=== PATIENT | male | born 1990 | race Caucasian/White ===

== ENCOUNTER 2017-08-21 22:31 | Emergency (ER) | payer SELFPAY ==
[2017-08-21 22:38] VITALS: O2SAT 98
[2017-08-21] MEDS ORDERED: Sodium Chloride 0.9% 1,000 ML IV SCH (23:00)
[2017-08-21 23:11] LABS: BASO % 0.5 % (0.0-2.0); EOS # 0.1 K/uL (0.0-0.7); EOS % 1.1 % (0.0-4.0); HEMATOCRIT 42.3 % (35.0-51.0); LYMPH # 0.8 K/uL (1.0-4.3); LYMPH % 9.9 % (20.0-40.0); MEAN CELL VOLUME 82.9 fl (80.0-94.0); MEAN CORPUSCULAR HEMOGLOBIN 27.8 pg (27.0-31.0); MEAN CORPUSCULAR HGB CONC 33.6 g/dL (33.0-37.0); MEAN PLATELET VOLUME 9.5 fl (7.2-11.7); MONO # 0.7 K/uL (0.0-0.8); MONO % 8.7 % (0.0-10.0); NEUT # 6.6 K/uL (1.8-7.0); NEUT % 79.8 % (50.0-75.0); PLATELET COUNT 231 K/uL (130-400); RED CELL DISTRIBUTION WIDTH 13.5 % (11.5-14.5); WHITE BLOOD COUNT 8.3 K/uL (4.8-10.8)
--- NOTE | 2017-08-21 23:14 | ED PDOC ---
HPI: Abdomen Time Seen by Provider: 08/21/17 22:51 Chief Complaint (Nursing): Abdominal Pain History Per: Patient History/Exam Limitations: no limitations Onset/Duration Of Symptoms: Days Outside of [place] travel?: Yes Other Location:: [facility] Current Symptoms Are (Timing): Still Present Context: Travel Severity: Moderate Location Of Pain/Discomfort: RLQ, LLQ Quality Of Discomfort: Cramping Associated Symptoms: Nausea, Vomiting, Diarrhea Exacerbating Factors: None Alleviating Factors: None Last Bowel Movement: Today Additional History Per: Patient Additional Complaint(s): Arrived from [facility] yesterday, complaining of bilateral lower abdominal cramping, 6 episodes of brown/watery diarrhea and 2 episodes of NBNB vomiting. No fevers/chills. Still feels nauseated. Past Medical History Reviewed: Historical Data, Nursing Documentation, Vital Signs Vital Signs: Last Vital Signs Temp 97.5 F L 08/21/17 22:36 Pulse 97 H 08/21/17 22:36 Resp 22 08/21/17 22:36 BP 142/82 08/21/17 22:36 Pulse Ox 98 08/21/17 23:14 - Medical History PMH: Gall Bladder Disease - Family History Family History: States: Unknown Family Hx - Home Medications Home Medications: Ambulatory Orders Medication Instructions Recorded Guaifenesin/Pseudoephedrne HCl 1 tab PO DAILY PRN #30 ter 12/15/16 [Mucinex D 600 mg-60 mg] Promethazine HCl/Codeine 5 ml PO HS #80 ml 12/15/16 [Prometh-Codein 6.25-10 mg/5 ml] Dicyclomine [Dicyclomine HCl] 10 mg PO QID #30 cap 08/22/17 - Allergies Allergies/Adverse Reactions: Allergies Allergy/AdvReac Type Severity Reaction Status Date / Time No Known Allergies Allergy Verified 12/15/16 14:46 Review of Systems ROS Statement: Except As Marked, All Systems Reviewed And Found Negative Gastrointestinal: Positive for: Nausea, Vomiting, Abdominal Pain, Diarrhea Physical Exam - Reviewed Nursing Documentation Reviewed: Yes Vital Signs Reviewed: Yes - Physical Exam Appears: Positive for: Well, Non-toxic, No Acute Distress Head Exam: Positive for: ATRAUMATIC, NORMAL INSPECTION, NORMOCEPHALIC Skin: Positive for: Normal Color, Warm, DRY Eye Exam: Positive for: EOMI, Normal appearance, PERRL ENT: Positive for: Normal ENT Inspection Neck: Positive for: Normal, Painless ROM Cardiovascular/Chest: Positive for: Regular Rate, Rhythm Respiratory: Positive for: CNT, Normal Breath Sounds Gastrointestinal/Abdominal: Positive for: Normal Exam, Bowel Sounds, Soft, Tenderness (mild lower abdom tenderness to palpation) Back: Positive for: Normal Inspection Extremity: Positive for: Normal ROM Neurologic/Psych: Positive for: Alert, Oriented - Laboratory Results Result Diagrams: 08/21/17 23:07 08/21/17 23:07 - ECG O2 Sat by Pulse Oximetry: 98 Medical Decision Making Medical Decision Making: A/P: No PMHX p/w lower abdominal cramping and n/v/d since return from [facility] -labs, fluids, zofran, toradol -likely viral GE -will reassess 1230 Pt. tolerating PO. Feeling much better. Will d/c w/ bentyl. Return precautions discussed. Disposition - Clinical Impression Clinical Impression: Gastroenteritis - Patient ED Disposition Is Patient to be Admitted: No - Disposition Referrals: [facility] [Outside] Disposition: Routine/Home Disposition Time: 00:27 Condition: STABLE Prescriptions: Dicyclomine [Dicyclomine HCl] 10 mg PO QID #30 cap Instructions: Gastroenteritis (ED) Forms: [facility] (Croatian)
[2017-08-21 23:17] LABS: RBC URINE 9 /hpf (0-3); URINE BILIRUBIN NEGATIVE (NEGATIVE); URINE BLOOD SMALL (NEGATIVE); URINE COLOR YELLOW (YELLOW); URINE GLUCOSE (UA) NEG (Normal); URINE KETONE NEGATIVE (NEGATIVE); URINE LEUKOCYTE ESTERASE NEG Leu/uL (Negative); URINE PROTEIN 30 mg/dL (NEGATIVE); URINE UROBILINOGEN 0.2-1.0 mg/dL (0.2-1.0); WBC URINE 2 /hpf (0-5)
[2017-08-21 23:20] LABS: BLOOD UREA NITROGEN 16 mg/dl (9-20); CALCIUM 9.1 mg/dL (8.4-10.2); CARBON DIOXIDE 22 mmol/L (22-30); CHLORIDE 104 mmol/L (98-107); GFR AFRICAN-AMERICAN > 60; GLUCOSE,RANDOM 104 mg/dL (75-110); LIPASE 35 U/L (23-300); POTASSIUM 3.8 MMOL/L (3.6-5.0); SODIUM 138 mmol/l (132-148)
[2017-08-22 02:35] VITALS: BP 111/64; PULSE 81; RESP 18; TEMP 98.5
[2017-08-22 02:36] LABS: NEUTROPHIL 80 % (42-75); TOTAL CELLS COUNTED 100
[2017-08-22 02:37] LABS: LARGE PLATELETS PRESENT
== END 2017-08-22 02:35 | disposition home or self-care (01) ==
LOC: H.ER 22:31
DX: K52.9 Noninfective gastroenteritis and colitis, unspecified (principal)
CPT/HCPCS: 80048; 81003; 83690; 85025; 96361; 96374; 96375; 99282; J1885; J2405; J2765; J7040

== ENCOUNTER 2017-08-24 09:07 | Emergency (ER) | payer SELFPAY ==
[2017-08-24] MEDS ORDERED: Sodium Chloride 0.9% 1,000 ML IV STA (09:34)
[2017-08-24 09:35] VITALS: BP 106/53; PULSE 76; RESP 18; TEMP 97; O2SAT 99
--- NOTE | 2017-08-24 09:40 | ED PDOC ---
HPI: Abdomen Time Seen by Provider: 08/24/17 09:30 Chief Complaint (Nursing): Abdominal Pain Chief Complaint (Provider): Abdominal pain History Per: Patient History/Exam Limitations: no limitations Onset/Duration Of Symptoms: Days (5) Outside of [place] travel?: No Current Symptoms Are (Timing): Still Present Location Of Pain/Discomfort: LLQ Associated Symptoms: Nausea, Vomiting, Diarrhea Additional Complaint(s): 27yo male presents to ED for evaluation of left lower quadrant abdominal pain, associated with nausea, vomiting, diarrhea, present for the past 5 days. Patient reports he recently traveled to [facility]. He denies any fever, bloody stool or bloody vomitus. No other complaints. Past Medical History Reviewed: Historical Data, Nursing Documentation, Vital Signs Vital Signs: Last Vital Signs Temp 97 F L 08/24/17 09:32 Pulse 76 08/24/17 09:32 Resp 18 08/24/17 09:32 BP 106/53 L 08/24/17 09:32 Pulse Ox 99 08/24/17 09:42 - Medical History PMH: No Chronic Diseases, Gall Bladder Disease - Surgical History Surgical History: No Surg Hx - Family History Family History: States: No Known Family Hx, Unknown Family Hx - Home Medications Home Medications: Ambulatory Orders Medication Instructions Recorded Guaifenesin/Pseudoephedrne HCl 1 tab PO DAILY PRN #30 ter 12/15/16 [Mucinex D 600 mg-60 mg] Promethazine HCl/Codeine 5 ml PO HS #80 ml 12/15/16 [Prometh-Codein 6.25-10 mg/5 ml] Dicyclomine [Dicyclomine HCl] 10 mg PO QID #30 cap 08/22/17 Ciprofloxacin HCl [Cipro] 500 mg PO BID #20 tab 08/24/17 Dicyclomine [Dicyclomine HCl] 10 mg PO TID #10 cap 08/24/17 Metronidazole [Flagyl] 500 mg PO TID #30 tablet 08/24/17 - Allergies Allergies/Adverse Reactions: Allergies Allergy/AdvReac Type Severity Reaction Status Date / Time No Known Allergies Allergy Verified 12/15/16 14:46 Review of Systems ROS Statement: Except As Marked, All Systems Reviewed And Found Negative Constitutional: Negative for: Fever Gastrointestinal: Positive for: Nausea, Vomiting, Abdominal Pain (left lower quadrant), Diarrhea Physical Exam - Reviewed Nursing Documentation Reviewed: Yes Vital Signs Reviewed: Yes - Physical Exam Appears: Positive for: Non-toxic, No Acute Distress Skin: Positive for: Normal Color ENT: Positive for: Other (wet mucus membranes) Neck: Positive for: Supple Cardiovascular/Chest: Positive for: Regular Rate, Rhythm Respiratory: Positive for: Normal Breath Sounds. Negative for: Respiratory Distress Gastrointestinal/Abdominal: Positive for: Soft, Tenderness (mild left lower quadrant tenderness). Negative for: Guarding, Rebound Extremity: Positive for: Normal ROM Neurologic/Psych: Positive for: Alert, Oriented. Negative for: Motor/Sensory Deficits - Laboratory Results Result Diagrams: 08/24/17 09:55 08/24/17 09:55 - ECG O2 Sat by Pulse Oximetry: 99 (RA) Pulse Ox Interpretation: Normal Medical Decision Making Medical Decision Making: Time: 929 Impression: Left lower quadrant abdominal pain Plan: -- CT Abdomen w/ IV Contrast -- labs -- bentyl 10 mg PO -- Zofran 4mg IVP -- IV Fluids Reassess Scribe Attestation: Documented by Dariana Norton acting as a scribe for Alexandre Marcos MD. Provider Attestation: All medical record entries made by the Scribe were at my direction and personally dictated by me. I have reviewed the chart and agree that the record accurately reflects my personal performance of the history, physical exam, medical decision making, and the department course for this patient. I have also personally directed, reviewed, and agree with the discharge instructions and disposition. Disposition - Clinical Impression Clinical Impression: Colitis - Patient ED Disposition Is Patient to be Admitted: No Counseled Patient/Family Regarding: Studies Performed, Diagnosis, Need For Followup, Rx Given - Disposition Referrals: Flora GUILLEN,MD Tita [Medical Doctor] - Disposition: Routine/Home Disposition Time: 12:26 Condition: FAIR Prescriptions: Ciprofloxacin HCl [Cipro] 500 mg PO BID #20 tab Dicyclomine [Dicyclomine HCl] 10 mg PO TID #10 cap Metronidazole [Flagyl] 500 mg PO TID #30 tablet Instructions: Colitis (ED) Forms: [facility] (K[place]i)
[2017-08-24 10:02] LABS: BASO % 0.5 % (0.0-2.0); EOS # 0.1 K/uL (0.0-0.7); EOS % 1.8 % (0.0-4.0); HEMATOCRIT 41.9 % (35.0-51.0); LYMPH # 1.6 K/uL (1.0-4.3); LYMPH % 21.9 % (20.0-40.0); MEAN CELL VOLUME 83.7 fl (80.0-94.0); MEAN CORPUSCULAR HEMOGLOBIN 27.7 pg (27.0-31.0); MEAN CORPUSCULAR HGB CONC 33.2 g/dL (33.0-37.0); MEAN PLATELET VOLUME 9.6 fl (7.2-11.7); MONO # 0.6 K/uL (0.0-0.8); NEUT # 4.8 K/uL (1.8-7.0); NEUT % 66.8 % (50.0-75.0); RED CELL DISTRIBUTION WIDTH 13.9 % (11.5-14.5); WHITE BLOOD COUNT 7.2 K/uL (4.8-10.8)
[2017-08-24 10:13] LABS: ALB/GLOB RATIO 1.4 (1.0-2.1); ALKALINE PHOSPHATASE 77 U/L (38-126); ALT/SGPT 56 U/L (21-72); AST/SGOT 28 U/L (17-59); BILIRUBIN,TOTAL 0.3 mg/dl (0.2-1.3); BLOOD UREA NITROGEN 13 mg/dl (9-20); CALCIUM 8.7 mg/dL (8.4-10.2); CARBON DIOXIDE 24 mmol/L (22-30); CHLORIDE 108 mmol/L (98-107); GFR AFRICAN-AMERICAN > 60; GLUCOSE,RANDOM 90 mg/dL (75-110); POTASSIUM 3.9 MMOL/L (3.6-5.0); SODIUM 143 mmol/l (132-148); TOTAL PROTEIN 7.2 G/DL (6.3-8.2)
[2017-08-24] MEDS ORDERED: Sodium Chloride 0.9% 50 ML IV ONE (10:40)
[2017-08-24] MEDS ORDERED: Iohexol 300 100 ML IJ ONE (10:40)
--- NOTE | 2017-08-24 11:43 | CT ---
PROCEDURE: CT scan of the abdomen and pelvis dated 08/24/2017 HISTORY: LLQ pain COMPARISON: Comparison made with prior study 08/13/2015. TECHNIQUE: Contiguous axial images of the abdomen and pelvis performed following oral and intravenous injection of approximately 95 cc of Omnipaque 300 contrast material. . Coronal and Sagittal reformats generated. This CT exam was performed using one or more of the following dose reduction techniques: Automated exposure control, adjustment of the mA and/or kV according to patient size, and/or use of iterative reconstruction technique. Total exam DLP = 1200.49 mGy-cm. FINDINGS: LOWER THORAX: Lung bases clear. No infiltrate effusion or basilar pneumothorax. . Heart size is within range of normal. No significant pericardial effusion. LIVER: Liver is mildly enlarged measuring approximately 20 cm in CC dimension. No obvious hepatic mass collection or calcification. Suspect minimal fatty hepatic infiltration. No obvious hepatic mass collection or calcification GALLBLADDER AND BILE DUCTS: Gallbladder is physiologically distended. No evidence of intraluminal gallbladder calculi. PANCREAS: The visualized portions of the pancreas unremarkable. SPLEEN: Spleen exhibits normal size and attenuation pattern without mass collection or calcification. ADRENALS: No adrenal lesions. KIDNEYS AND URETERS: The kidneys demonstrate symmetric nephrograms. No evidence of nephrolithiasis or hydronephrosis. BLADDER: The urinary bladder is incompletely distended which may account for slight thick-walled appearance. Muscular hypertrophy may contribute. Cystitis would be less likely in a male patient however correlation with urinalysis suggested. REPRODUCTIVE: Prostate gland and seminal vesicles appear grossly unremarkable. APPENDIX: Normal-appearing appendix best seen on coronal image number [id number]. BOWEL: Evaluation of the bowel is limited due to incomplete opacification. Stomach is incompletely distended which presumably accounts for thick-walled appearance. . Visualized loops of small bowel exhibit relatively normal contour and caliber. No evidence of acute mechanical small bowel obstruction. There is mild thickening of the wall of the cecum, ascending, transverse as well as proximal descending colon. Findings are nonspecific though a infectious and or inflammatory colitis must be considered. PERITONEUM: No fluid collection. No free air. . Tiny fat containing umbilical hernia. Small fat containing left inguinal hernia LYMPH NODES: . Multiple small mid mesenteric lymph nodes; rule out mesenteric adenitis VASCULATURE: Unremarkable. No aortic aneurysm. BONES: . The visualized lower thoracic and lumbar spine intact. No significant degenerative spondylosis. OTHER FINDINGS: None. IMPRESSION: Findings consistent with mild nonspecific infectious and or inflammatory colitis involving the cecum, ascending, transverse and proximal descending colon. . There are multiple small on nonspecific mesenteric lymph nodes also seen possibly representing nonspecific mesenteric adenitis. No evidence of acute appendicitis. Hepatomegaly.
[2017-08-24] MEDS ORDERED: Albuterol 0.042% Inhal Sol (1.25 mg/3 mL) UD ONE (19:05)
== END 2017-08-24 12:35 | disposition home or self-care (01) ==
LOC: H.ER 09:07
DX: K52.9 Noninfective gastroenteritis and colitis, unspecified (principal)
CPT/HCPCS: 74177; 80053; 85025; 96374; 99282; J2405; J7040; Q9967

== ENCOUNTER 2018-11-07 19:56 | Emergency (ER) | payer SELFPAY ==
[2018-11-07 20:52] VITALS: BP 143/80; RESP 18
[2018-11-07 21:57] VITALS: O2SAT 99
--- NOTE | 2018-11-07 22:40 | ED PDOC ---
History of Present Illness History of Present Illness: 28 year old male with no PMHx presents to the ED with influenza like symptoms since today. Patient reports runny nose, cough, sore throat associated body aches, dizziness, and fever. Cough medications taken this morning, he thinks he took Dayquil but cannot recall exact name. Patient denies vomiting, diarrhea, rash or swelling. No recent travel or known sick contacts. PMD: none HPI: Influenza Time Seen by Provider: 11/07/18 21:27 Chief Complaint: Dizziness/Lightheaded Chief Complaint (Provider): influenza like symptoms History Per: Patient Exam Limitations: no limitations Have you had recent travel within the past 21 days to any of: No Onset/Duration Of Symptoms: Days (today) Symptoms include: fever, bodyaches, sore throat, cough. denies: vomiting, diarrhea, rash Past Medical History Reviewed: Historical Data, Nursing Documentation, Vital Signs Vital Signs: Last Vital Signs Temp 99.9 F H 11/07/18 21:56 Pulse 93 H 11/07/18 21:52 Resp 18 11/07/18 21:52 BP 143/80 11/07/18 20:49 Pulse Ox 99 11/07/18 21:52 - Medical History PMH: Gall Bladder Disease - Surgical History Surgical History: No Surg Hx - Family History Family History: States: Unknown Family Hx - Social History Current smoker - smoking cessation education provided: No Ex-Smoker (has not smoked in the last 12 months): No - Home Medications Home Medications: Ambulatory Orders Medication Instructions Recorded Guaifenesin/Pseudoephedrne HCl 1 tab PO DAILY PRN #30 ter 12/15/16 [Mucinex D 600 mg-60 mg] Promethazine HCl/Codeine 5 ml PO HS #80 ml 12/15/16 [Prometh-Codein 6.25-10 mg/5 ml] Dicyclomine [Dicyclomine HCl] 10 mg PO QID #30 cap 08/22/17 Ciprofloxacin HCl [Cipro] 500 mg PO BID #20 tab 08/24/17 Dicyclomine [Dicyclomine HCl] 10 mg PO TID #10 cap 08/24/17 Metronidazole [Flagyl] 500 mg PO TID #30 tablet 08/24/17 Oseltamivir Cap [Tamiflu] 75 mg PO BID #10 cap 02/03/19 RX: Acetaminophen [Tylenol Extra 1,000 mg PO Q6 PRN #100 tablet 11/07/18 Strength] RX: Ibuprofen [Motrin Tab] 600 mg PO Q8 PRN #30 tab 11/07/18 - Allergies Allergies/Adverse Reactions: Allergies Allergy/AdvReac Type Severity Reaction Status Date / Time No Known Allergies Allergy Verified 12/15/16 14:46 Review of Systems ROS Statement: Except As Marked, All Systems Reviewed And Found Negative Constitutional: Positive for: Fever, Other (body aches) ENT: Positive for: Throat Pain, Other (runny nose) Respiratory: Positive for: Cough Gastrointestinal: Negative for: Vomiting, Diarrhea Skin: Negative for: Rash Neurological: Positive for: Dizziness Physical Exam - Reviewed Nursing Documentation Reviewed: Yes Vital Signs Reviewed: Yes - Physical Exam Appears: Positive for: Non-toxic, No Acute Distress (febrile and tired appearing) Head Exam: Positive for: ATRAUMATIC, NORMOCEPHALIC Skin: Positive for: Warm, Dry Eye Exam: Positive for: EOMI, PERRL ENT: Positive for: Pharynx Is (clear), Nasal Congestion (bilateral). Negative for: Tonsillar Exudate Neck: Positive for: Painless ROM, Supple Cardiovascular/Chest: Positive for: Regular Rate, Rhythm. Negative for: Murmur Respiratory: Positive for: Normal Breath Sounds. Negative for: Rales, Rhonchi, Wheezing, Respiratory Distress Gastrointestinal/Abdominal: Positive for: Soft. Negative for: Tenderness Back: Positive for: Normal Inspection. Negative for: Decreased ROM Extremity: Positive for: Normal ROM. Negative for: Deformity Lymphatic: Negative for: Adenopathy Neurologic/Psych: Positive for: Alert. Negative for: Motor/Sensory Deficits Medical Decision Making Medical Decision Making: Time: 2150 Impression: influenza like illness Differential diagnoses include but are not limited to: pneumonia Plan: --CXR --Tamiflu 75 mg PO --Toradol 30 mg IM --Tylenol 975 mg PO On reeval temp normalized. Otherwise benign exam. - Scribe Attestation: Documented by Skye Ledbetter, acting as a scribe for Gisela Fowler MD. Provider Scribe Attestation: All medical record entries made by the Scribe were at my direction and personally dictated by me. I have reviewed the chart and agree that the record accurately reflects my personal performance of the history, physical exam, medical decision making, and the department course for this patient. I have also personally directed, reviewed, and agree with the discharge instructions and disposition. - ECG O2 Sat by Pulse Oximetry: 99 (RA) Pulse Ox Interpretation: Normal - Radiology X-Ray: Interpreted by Me X-Ray Interpretation: No Acute Disease Disposition - Clinical Impression Clinical Impression: Influenza-like illness - Disposition Referrals: [facility] [Outside] Disposition: Routine/Home Disposition Time: 23:19 Condition: IMPROVED Additional Instructions: DRINK PLENTY OF HYDRATING FLUIDS AND REST TAKE IBUPROFEN AND/OR ACETAMINOPHEN FOR PAIN AND FEVER. FOLLOWUP WITH CLINIC IN A WEEK TO SEE HOW YOU ARE DOING Prescriptions: RX: Acetaminophen [Tylenol Extra Strength] 1,000 mg PO Q6 PRN #100 tablet PRN Reason: FEVER OR PAIN RX: Ibuprofen [Motrin Tab] 600 mg PO Q8 PRN #30 tab PRN Reason: PAIN OR FEVER Oseltamivir Cap [Tamiflu] 75 mg PO BID #10 cap Instructions: Viral Syndrome (DC) Forms: [facility] ED School/Work Excuse
[2018-11-07 23:17] VITALS: TEMP 98.5
[2018-11-07 23:30] VITALS: PULSE 87
--- NOTE | 2018-11-08 08:19 | RAD ---
Date of service: 11/07/2018 HISTORY: fever cough COMPARISON: No prior. TECHNIQUE: Chest PA and lateral FINDINGS: LUNGS: No active pulmonary disease. Stable diminished pulmonary volume. PLEURA: No significant pleural effusion identified. No pneumothorax apparent. CARDIOVASCULAR: No aortic atherosclerotic calcification present. Normal cardiac size. No pulmonary vascular congestion. OSSEOUS STRUCTURES: No significant abnormalities. VISUALIZED UPPER ABDOMEN: Normal. OTHER FINDINGS: None. IMPRESSION: No interval acute cardiopulmonary disease appreciated.
== END 2018-11-07 23:29 | disposition home or self-care (01) ==
LOC: H.ER 19:56
DX: J11.1 Influenza due to unidentified influenza virus with other respiratory manifestations (principal); Z87.891 Personal history of nicotine dependence
CPT/HCPCS: 71046; 96372; 99285; J1885